=== PATIENT | male | born 1970 | race Caucasian/White ===

== ENCOUNTER 2017-05-07 22:39 | Emergency (ER) | payer OTHER ==
[~2017-05-07] VITALS: Ht 167.6 cm; Wt 113.4 kg
[2017-05-07 22:48] VITALS: BP_SYST 161
[2017-05-07 23:56] VITALS: BP_SYST 156
== END 2017-05-07 23:56 | disposition home or self-care (01) ==
LOC: SED 22:39
DX: I10 Essential (primary) hypertension (principal); R05 Cough
CPT/HCPCS: 99283